=== PATIENT | male | born 1995 | race Caucasian/White ===

== ENCOUNTER 2020-03-22 21:42 | Emergency (ER) | payer SELFPAY ==
[~2020-03-22] VITALS: Ht 185.4 cm; Wt 83.9 kg
[2020-03-22 22:02] VITALS: BP 128/66
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
[2020-03-22] MEDS ORDERED: NORCO 5-325 TA1 EAC1 ORAL (22:10)
[2020-03-22] MEDS ORDERED: Oxymetazoline 0.05% Na Spray 30ml NASAL ONE (22:15)
[2020-03-22 22:30] VITALS: BP 128/66
--- NOTE | 2020-03-22 22:34 | Diagnostic Imaging Report ---
EXAM: XR Nasal Bones, 3 or More Views CLINICAL HISTORY: PAIN TECHNIQUE: Frontal and lateral views of the nasal bones. COMPARISON: No relevant prior studies available. FINDINGS: Bones/joints: No significantly displaced nasal bone fracture seen. Please note that if there is concern for a shoulder fracture, CT is substantially more sensitive and specific. Sinuses: Unremarkable. No air-fluid levels. Soft tissues: Unremarkable. IMPRESSION: 1. No significantly displaced nasal bone fracture seen. 2. Please note that if there is concern for a shoulder fracture, CT is substantially more sensitive and specific.
== END 2020-03-22 22:30 | disposition home or self-care (01) ==
LOC: EMR 21:55
DX: S01.81XA Laceration without foreign body of other part of head, initial encounter (principal); S00.33XA Contusion of nose, initial encounter; W50.0XXA Accidental hit or strike by another person, initial encounter
CPT/HCPCS: 70160; 99283